=== PATIENT | male | born 1985 | race Caucasian/White ===

== ENCOUNTER 2023-02-24 12:18 | Emergency (ER) | payer SELFPAY ==
[2023-02-24 12:30] VITALS: BP 142/80; PULSE 77; RESP 20; TEMP 98.2; BMI 28.1
[2023-02-24 13:24] LABS: HEMATOCRIT 47.3 % (35.4-49); HEMOGLOBIN 16.2 G/dL (11.7-16.9); MCH 30.8 pg (25.7-33.7); MCHC 34.3 g/dl (32.0-35.9); MEAN CELL VOLUME 89.9 fl (80-96); MEAN PLT VOLUME 7.8 fl (7.5-11.1); PLATELET COUNT 303.7 10^3/uL (134-434); RBC 5.26 10^6/uL (4.00-5.60); RDW 13.7 % (11.9-15.9)
[2023-02-24 13:28] LABS: PLATELET ESTIMATE ADEQUATE
[2023-02-24 13:34] LABS: ALBUMIN 5.3 g/dl (3.4-5.0); BILIRUBIN,TOTAL 0.6 mg/dl (0.2-1); BLOOD UREA NITROGEN 14.9 mg/dl (7-18); CALCIUM 9.9 mg/dl (8.5-10.1); CREATININE 1.3 mg/dl (0.6-1.3); POTASSIUM 3.7 mmol/L (3.5-5.1); SGOT/AST 38.1 U/L (15-37); SGPT/ALT 95.7 U/L (7-52); TOT PROT 7.6 g/dl (6.4-8.2)
[2023-02-24 13:48] LABS: ERYTHROCYTE SEDIMENTATION RATE 4 mm/hr (0-10)
== END 2023-02-24 14:07 | disposition home or self-care (01) ==
LOC: FER 12:18
DX: R21 Rash and other nonspecific skin eruption (principal)
CPT/HCPCS: 36415; 80053; 81003; 81015; 82550; 82553; 85025; 85651; 99283-25